=== PATIENT | female | born 1935 | race Caucasian/White ===

== ENCOUNTER 2017-10-28 13:17 | Emergency (ER) | payer MEDICARE, OTHER, SELFPAY ==
[2017-10-28 13:18] VITALS: BP 125/65; PULSE 80; RESP 16; TEMP 36.4; O2SAT 94; BMI 17.9
--- NOTE | 2017-10-28 13:33 | EKG12_ITS ---
Test Reason : DIZZINESS Blood Pressure : / mmHG Vent. Rate : 080 BPM Atrial Rate : 080 BPM P-R Int : 136 ms QRS Dur : 082 ms QT Int : 390 ms P-R-T Axes : 083 065 073 degrees QTc Int : 449 ms Normal sinus rhythm Normal ECG Confirmed by DOM DUEÑAS, LORNA ([id number]), metropolitan editor RAMIN BURNS ([id number]) on 10/31/2017 2:01:27 PM Referred By: ARIEL Confirmed By:LORNA FERNANDES MD
[2017-10-28 14:01] LABS: Absolute Lymphocyte Count 0.94 X10^3/ul (0.83-4.51); Absolute Neutrophil Count 6.7 X10^3/uL (2.0-7.7); Basophil# 0.02 X10^3/uL; Basophil% 0.2 % (0-1); Eosinophil# 0.06 X10^3/uL; Eosinophils% 0.7 % (0-5); Hematocrit 36.5 % (37-47); Hemoglobin 11.6 g/dl (12.0-15.0); Lymphocyte # 0.94 X10^3/ul (4.0); Lymphocyte % 11.2 % (19-41); Mean Corp Hgb Conc 31.8 g/gl (32-36); Mean Corpuscular Hgb 29.1 pg (27.0-32.0); Mean Corpuscular Volume 91.5 fL (81-99); Mean Platelet Vol. 10.1 fl (6.2-12.0); Monocyte# 0.64 X10^3/uL; Monocyte% 7.6 % (0-10); Neutrophil # 6.71 X10^3/uL (2.7-7.7); Neutrophil % 79.9 % (47-70); Platelet Count 180 K/mm3 (150-450); RBC Distribution Width CV 13.3 % (11.6-14.6); RBC Distribution Width SD 44.6 fl (35.1-43.9); Red Blood Count 3.99 M/mm3 (4.2-5.4); White Blood Count 8.4 K/mm3 (4.4-11.0)
[2017-10-28 14:02] LABS: POSITIVE COUNT NO; POSITIVE DIFFERENTIAL NO; POSITIVE MORPHOLOGY NO
[2017-10-28 14:18] LABS: Anion Gap 7 (5-15); BUN 23 mg/dL (7-18); BUN/Creat Ratio 30.7 RATIO (10-20); Calcium,Total 8.9 mg/dL (8.5-10.1); Chloride 102 mmol/L (98-107); Creatinine, Serum 0.75 mg/dL (0.55-1.02); EST Glomerular Filtration Rate 79 mL/min (>60); Est Glom Filt Rate - Afr Amer 95 mL/min (>60); Estimated Creatinine Clearance 34.06 ml/min; Glucose 139 mg/dL (74-106); Potassium 3.6 mmol/L (3.5-5.1); Sodium Level 138 mmol/L (136-145)
--- NOTE | 2017-10-28 14:23 | RAD_ITS ---
STUDY: X-RAY CHEST REASON FOR EXAM: Female, 82 years old. Dizziness. Near syncopal episode. TECHNIQUE: PA and lateral views of the chest. COMPARISON: Comparison is made with prior study dated February 14, 2017. FINDINGS: Hyperinflation. Mild residual increased markings in the lingular segment of the left upper lobe suggestive of scarring. This has improved as compared to prior study. Mild increased markings at the lung apices suggestive of scarring. There is no demonstrated pleural abnormality. Normal size heart. Normal mediastinum and suzanne. Normal visualized pulmonary arteries. Normal visualized aortic arch and descending thoracic aorta. There is demineralization of the osseous structures. Normal visualized ribs, clavicles, and shoulders. There is no demonstrated abnormality of the visualized soft tissue structures of the upper abdomen. RAD/Chest PA and Lateral IMPRESSION: Hyperinflation. Mild degree of increased markings at the left lung base suggestive of left basilar scarring. Electronically Signed: Osbaldo Garza MD at 14:51 EDT Tel [phone], Service support ,
--- NOTE | 2017-10-28 15:01 | ED.VISSUMM ---
- ER Visit Summary Date of Service: 10/28/17 Chief Complaint: Lightheaded History of Present Illness: The patient is a [address] Lior Todd III. 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 She did not pass out. She did not have any chest pain, palpitations, shortness of breath, nausea, or abdominal pain. On review of systems patient reports that she has had a cough for the past week and it is improving. Is productive yellow sputum without blood. She denies any fever, chills, or other complaints. Physical Examination: Vitals: Stable. Afebrile. General: Well-nourished and well-developed. Head: Normocephalic atraumatic. Neck: Supple, no lymphadenopathy. No JVD. Nontender. Cardiovascular: Regular rate and rhythm. No murmurs. Respiratory: No respiratory distress. Clear to auscultation bilaterally. Abdominal: Soft, nontender, nondistended, normal bowel sounds. No guarding, rebound, or peritoneal signs. Back: Nontender. Extremities: Nontender, no edema. Skin: Normal color, no rash. Neurologic: Alert and oriented ?3. Cranial nerves II through XII are intact. Normal strength and sensation. Psych: Normal affect. Test Results: EKG is sinus at 80 with no acute changes. Troponins negative. Chem-7 more for close of 139 and BUN of 23. Her BUN/creatinine ratio is 30.7 suggesting dehydration. CBC is marked for an H&H 11.6 and 36.5, segment was 80, monocytes of 11. Chest x-ray shows chronic changes. Emergency Department Course and Treatment: Patient was given a liter bolus of normal saline and her symptoms have completely resolved. Treatment Plan: Discussed the patient that her symptoms are likely due to dehydration exacerbated by the fact that she had been standing in one position for 3 hours. She is instructed to push fluids. Follow-up Dr. Lior Todd III in 1-2 days if not improving. Return Disposition: To home in improved and stable condition. Impression: 1. Near syncope. 2. Dehydration. 3. URI. This note was generated with [employer] software. It may contain incorrect words, spelling, and punctuation that were not noted in review of the chart prior to signing ED Disposition - Plan for ED Patient: Disposition: Home or Assisted Living Chief Complaint: Syncope Instructions: ED Dehydration Referrals: Lior Todd III, MD [Primary Care Provider] - 1-2 Days if not improving
[2017-10-28 16:21] VITALS: BP 118/53; PULSE 89; RESP 14; O2SAT 95
== END 2017-10-28 16:22 | disposition home or self-care (01) ==
PROVIDERS: Emergency Provider Emergency Medicine; Family Provider Family Medicine; PCP Family Medicine
DX: E86.0 Dehydration (principal); R55 Syncope and collapse; J06.9 Acute upper respiratory infection, unspecified; I10 Essential (primary) hypertension; Z79.82 Long term (current) use of aspirin; Z79.899 Other long term (current) drug therapy
CPT/HCPCS: 71046; 80048; 84484; 85025; 93005; 96360; 99285; J7030; J7040; A4216

== ENCOUNTER 2018-05-18 18:38 | Emergency (ER) | payer OTHER, MEDICARE, SELFPAY ==
[2018-05-18 18:40] VITALS: BP 145/79; PULSE 78; RESP 18; TEMP 36.6; O2SAT 98; BMI 16.9
--- NOTE | 2018-05-18 19:04 | RAD_ITS ---
STUDY: X-RAY - LEFT KNEE REASON FOR EXAM: Female, 83 years old. FALL, PAIN SWELLING AND DEFORMITY TO KNEE TECHNIQUE: 2 view(s) of the knee. COMPARISON: None. FINDINGS: Normal visualized distal femur. Normal visualized proximal tibia and fibula. Normal proximal tibiofibular articulation. Normal medial femorotibial compartment. Normal lateral femorotibial compartment. Normal patellofemoral articulation. There is a soft tissue prominence in the suprapatellar region suggesting a small volume joint effusion. Soft tissue swelling around the patella. Horizontal fracture through the mid patella. RAD/Knee 1 or 2 Views IMPRESSION: Soft tissue swelling around the patella. Horizontal fracture through the mid patella. Suprapatellar effusion. Electronically Signed: Kin Rehman MD at 19:22 EDT , Service support ,
--- NOTE | 2018-05-18 20:08 | ED.DCSUM_ITS ---
- ER Visit Summary Date of Service: 05/18/18 Chief Complaint: [Injury to left knee] History of Present Illness: The patient is a 83 F [presents to the emergency department complaint of injury to her left knee while at work today. Patient states that she tripped over a step while at work and fell directly onto her left knee. Patient unable to stand or bear weight afterwards. Patient denies any other injuries. Patient does have a history of hypertension. Patient is not on any blood thinners. She denies striking her head.] Physical Examination: [HEENT-PERRLA, EOMI. Cranial nerves II through XII grossly intact. TMs clear. Mucous membranes moist. No adenopathy. Cardiovascular-regular rate and rhythm without murmur or ectopy Lungs-clear to auscultation, chest wall stable without crepitus or subcu emphysema Abdomen-normoactive bowel sounds, soft, nontender, no rebound or rigidity, no peritoneal signs. Extremities-intact ?4, normal range of motion, normal pulses. Left knee-patient does have ecchymosis and soft tissue swelling over the anterior patella with tenderness palpation. Patient has limited range of motion flexion extension secondary to pain. Patient really cannot keep the leg extended at the knee off the bed. She is neurovascular intact distally. Test Results: [X-rays of the left knee obtained showed a horizontal fracture through the patella.] Emergency Department Course and Treatment: [Patient was placed in a knee immobilizer and given crutches. Patient will be advised to follow-up with orthopedics] Treatment Plan: [Follow-up with orthopedics and given a prescription for [place]ley for pain.] Disposition: [Discharged home in stable condition] Impression: [Mechanical fall Left patellar fracture] This note was generated with [employer] dictation software. It may contain incorrect words, spelling, and punctuation that were not noted in review of the chart prior to signing ED Disposition - Plan for ED Patient: Chief Complaint: Lower Extremity Injury Referrals: Lior Todd III, MD [Primary Care Provider] -
--- NOTE | 2018-05-18 20:08 | ED.DEP ---
ED Disposition - Plan for ED Patient: Chief Complaint: Lower Extremity Injury Instructions: ED Fx [place]ella Prescriptions: Hydrocodone Bitart/Apap 5-325 [[place] 5MG-325MG] 1 tab PO Q4H PRN PRN 2 Days #10 tab PRN Reason: Pain Referrals: Lior Todd III, MD [Primary Care Provider] - Trevor Reddy MD [STAFF PHYSICIAN] - 3-5 Days
[2018-05-18 20:55] VITALS: PULSE 81; RESP 17; O2SAT 98
== END 2018-05-18 21:02 | disposition home or self-care (01) ==
PROVIDERS: Emergency Provider Emergency Medicine; Family Provider Family Medicine; PCP Family Medicine
DX: S82.092A Other fracture of left patella, initial encounter for closed fracture (principal); W18.09XA Striking against other object with subsequent fall, initial encounter; Y93.9 Activity, unspecified; Y92.9 Unspecified place or not applicable; Y99.0 Civilian activity done for income or pay; I10 Essential (primary) hypertension; Z79.82 Long term (current) use of aspirin; Z79.899 Other long term (current) drug therapy
CPT/HCPCS: 73560; 99284

== ENCOUNTER → 2018-05-21 09:25 | Outpatient (CLI) | payer OTHER, SELFPAY ==
[2018-05-21 10:15] LABS: Hematocrit 39.4 % (37-47); Hemoglobin 12.8 g/dl (12.0-15.0); Mean Corp Hgb Conc 32.5 g/gl (32-36); Mean Corpuscular Hgb 29.6 pg (27.0-32.0); Mean Platelet Vol. 10.9 fl (6.2-12.0); Platelet Count 196 K/mm3 (150-450); RBC Distribution Width CV 13.2 % (11.6-14.6); RBC Distribution Width SD 43.3 fl (35.1-43.9); Red Blood Count 4.33 M/mm3 (4.2-5.4); White Blood Count 6.9 K/mm3 (4.4-11.0)
[2018-05-21 10:19] LABS: Scan Indicated on CBC? Y/N NO
[2018-05-21 10:37] LABS: Anion Gap 6 (5-15); BUN 21 mg/dL (7-18); BUN/Creat Ratio 26.2 RATIO (10-20); Calcium,Total 9.6 mg/dL (8.5-10.1); Chloride 103 mmol/L (98-107); EST Glomerular Filtration Rate 73 mL/min (>60); Est Glom Filt Rate - Afr Amer 88 mL/min (>60); Glucose 91 mg/dL (74-106); Potassium 4.1 mmol/L (3.5-5.1); Sodium Level 142 mmol/L (136-145)
== END ==
PROVIDERS: Family Provider Family Medicine; PCP Family Medicine; Referring Provider Physician Assistant; Visit Provider Physician Assistant
DX: Z01.818 Encounter for other preprocedural examination (principal)
CPT/HCPCS: 36415; 80048; 85027

== ENCOUNTER 2019-05-01 12:57 | Emergency (ER) | payer MEDICARE, OTHER, SELFPAY ==
[2019-05-01 12:58] VITALS: BP 155/72; PULSE 83; RESP 16; TEMP 36.2; O2SAT 99; BMI 16.8
--- NOTE | 2019-05-01 13:19 | RAD_ITS ---
STUDY: X-RAY CHEST REASON FOR EXAM: Female, 83 years old. Syncope TECHNIQUE: PA and lateral views of the chest. COMPARISON: October 28, 2017 chest x-ray FINDINGS: The lungs are hyperinflated. There is no demonstrated pleural abnormality. Normal size heart. Normal mediastinum and suzanne. Normal visualized pulmonary arteries. Normal visualized aortic arch and descending thoracic aorta. There are diffuse degenerative changes of the visualized thoracic spine. Normal visualized ribs, clavicles, and shoulders. There is no demonstrated abnormality of the visualized soft tissue structures of the upper abdomen. RAD/Chest PA and Lateral IMPRESSION: Nonspecific hyperinflation of the lungs no visualized focal infiltrate. Electronically Signed: Andreea Barclay MD at 14:53 EDT Tel , Service support ,
--- NOTE | 2019-05-01 13:19 | EKG12_ITS ---
Test Reason : SYNCOPE Blood Pressure : / mmHG Vent. Rate : 075 BPM Atrial Rate : 075 BPM P-R Int : 116 ms QRS Dur : 080 ms QT Int : 408 ms P-R-T Axes : 067 063 068 degrees QTc Int : 455 ms Normal sinus rhythm Normal ECG Confirmed by DOM DUEÑAS, LORNA ([id number]), publishing editor DIVINE ALCANTAR ([id number]) on 05/03/2019 9:02:03 AM Referred By: AP Confirmed By:LORNA FERNANDES MD
[2019-05-01 13:38] LABS: Absolute Neutrophil Count 4.7 X10^3/uL (2.0-7.7); Basophil# 0.03 X10^3/uL; Basophil% 0.5 % (0-1); Eosinophil# 0.06 X10^3/uL; Eosinophils% 0.9 % (0-5); Hematocrit 39.4 % (37-47); Hemoglobin 12.7 g/dL (12.0-15.0); Lymphocyte % 19.9 % (19-41); Mean Corp Hgb Conc 32.2 g/dL (32-36); Mean Corpuscular Hgb 29.7 pg (27.0-32.0); Mean Corpuscular Volume 92.1 fL (81-99); Mean Platelet Vol. 10.9 fl (6.2-12.0); Monocyte# 0.39 X10^3/uL; NRBC Flagged by Analyzer 0 % (0-5); Neutrophil # 4.72 X10^3/uL (2.7-7.7); Neutrophil % 72.4 % (47-70); Platelet Count 146 K/mm3 (150-450); RBC Distribution Width CV 12.8 % (11.6-14.6); RBC Distribution Width SD 43.8 fl (35.1-43.9); Red Blood Count 4.28 M/mm3 (4.2-5.4); White Blood Count 6.5 K/mm3 (4.4-11.0)
--- NOTE | 2019-05-01 13:48 | ED.VIS.GEN ---
History of Present Illness Informant: Patient, Significant Other Onset: Today Context: Sudden Onset Timing: Continuous Quality: syncope Current Severity: Mild Maximum Severity: Severe Worsened by: standing from sitting Relieved by: rest Associated Symptoms: nausea Narrative: 83 year old female Prior similar symptoms: Yes Recent Illness/Hospitalization: No <GuillaumeBrant sherman - Last Filed: 05/01/19 15:08> <Scout Askew - Last Filed: 05/01/19 21:55> Chief Complaint: Syncope Past Medical History Surgical History: cholecystectomy Smoking Status: Never smoker - Family History Maternal Family History: Reports: Unknown Paternal Family History: Reports: Unknown <GuillaumelaneBrant - Last Filed: 05/01/19 15:08> <Scout Askew - Last Filed: 05/01/19 21:55> - Allergies and Home Meds Allergies/Adverse Reactions: Allergies No Known Allergies Allergy (Verified 05/01/19 12:58) Primary Care Physician: Lior Todd III, MD [Primary Care Provider] - Physical Exam Vital Signs/Narrative: Vital Signs Temp Pulse Resp BP Pulse Ox 05/01/19 12:58 97.1 F L 83 16 155/72 H 99 <ZachBrant - Last Filed: 05/01/19 15:08> Diagnostic/Tx/Re-eval Chest X-Ray - ED: 2 View, Read by ED Physician, Read by Radiologist, No Acute Disease - Rhythm Strip Rhythm Strip: Sinus Rhythm Rate: 75 Ectopy: None - EKG Initial EKG Interpretation: Sinus Rhythm, No Acute Injury Pattern Prior: Unchanged - Medical Decision Making EKG was normal sinus rhythm rate of 75 bpm. No acute ischemic changes. Orthostatic vital signs were negative. Patient was given a 500 cc IV fluid bolus. Laboratory work-up is unremarkable, chest x-ray unremarkable. Repeat evaluation, the patient ambulates normally. She is not dizzy. Her vital signs are stable. She has been admitted for this in the past. At this time do not feel admission is indicated. She is agreeable with this plan. She will advise follow-up with her doctor on Friday which is in 48 hours. <ZachBrant - Last Filed: 05/01/19 15:08> - Medical Decision Making Patient was seen with me. I did a [id number] evaluation with the patient. Patient presents for syncopal episode that occurred today. Patient states she stood up from a seated position when she passed out. Patient denies any dizziness. Patient states she felt lightheaded and then passed out. Patient denies any palpitations. Patient denies any headaches. Patient denies any fevers or chills. Patient states she was only out for a few seconds and woke up immediately. Currently, patient denies any symptoms. Vital signs are stable. Patient is afebrile. Patient is in no acute distress. Cranial nerves II through XII are intact. Strength is 5/5 bilateral knee upper and lower extremities. There are no focal motor or sensory deficits noted. Heart was regular rate and rhythm. Lungs are clear and equal bilaterally. Abdomen is soft and nontender. Patient was admitted for syncopal episode approximately 1 year ago. Currently, the patient is asymptomatic and feels fine. Patient was to go home. Orthostatic vital signs were negative. Patient was able to ambulate without difficulty. Patient was instructed to follow-up with her primary care physician in 2 to 3 days for reevaluation. Patient and family understood and were agreeable with the plan. All questions were answered. <Scout Askew - Last Filed: 05/01/19 21:55> ED Disposition <Brant Serrano - Last Filed: 05/01/19 15:08> <Scout Askew - Last Filed: 05/01/19 21:55> - Plan for ED Patient: Disposition: Home or Assisted Living Diagnosis: Syncope Instructions: SYNCOPE, Unk Cause Referrals: Lior Todd III, MD [Primary Care Provider] -
[2019-05-01 13:59] LABS: Anion Gap 4 (5-15); BUN 18 mg/dL (7-18); BUN/Creat Ratio 19.1 RATIO (10-20); Calcium,Total 9.2 mg/dL (8.5-10.1); Chloride 102 mmol/L (98-107); Creatinine, Serum 0.94 mg/dL (0.55-1.02); EST Glomerular Filtration Rate 60 mL/min (>60); Est Glom Filt Rate - Afr Amer 73 mL/min (>60); Estimated Creatinine Clearance 33.43 ml/min; Glucose 123 mg/dL (74-106); Potassium 3.5 mmol/L (3.5-5.1); Sodium Level 138 mmol/L (136-145)
[2019-05-01 14:28] VITALS: BP 136/61; BP 147/73; BP 163/67; PULSE 73; PULSE 74; PULSE 79
[2019-05-01 15:07] VITALS: BP 144/81; PULSE 70; RESP 16; O2SAT 99
[2019-05-01 15:21] VITALS: BP 139/65; PULSE 73; RESP 16; O2SAT 98
== END 2019-05-01 15:30 | disposition home or self-care (01) ==
PROVIDERS: Emergency Provider Physician Assistant Medical; Family Provider Family Medicine; PCP Family Medicine
DX: R55 Syncope and collapse (principal)
CPT/HCPCS: 71046; 80048; 84484; 85025; 93005; 96360; 99285; J7040; A4216

== ENCOUNTER 2019-05-06 09:10 | Emergency (ER) | payer MEDICARE, OTHER, SELFPAY ==
[2019-05-06 09:11] VITALS: BP 196/80; PULSE 93; RESP 18; TEMP 36.6; O2SAT 98; BMI 17.1
--- NOTE | 2019-05-06 09:30 | ED.VISSUMM ---
- ER Visit Summary Date of Service: 05/06/19 Chief Complaint: High blood pressure History of Present Illness: The patient is a 83 F who presents for high blood pressure. She had home readings with a systolic blood pressure in the 150s and 180s today. Patient was seen previously in the ED 5 days ago for hypertension. She had an uneventful work-up and was advised to follow-up as an outpatient and she saw her doctor this week who did not change any of her medications. She thinks she is on losartan 100 mg daily and HCTZ 25 mg daily. She has been compliant with his treatment. Denies any symptoms or other changes. Physical Examination: Afebrile and vital signs unremarkable except for blood pressure 196/80. Patient in no acute distress. Alert and oriented. GCS 15. HEENT exam unremarkable. Neck is nontender with good range of motion. Heart regular. Lungs clear. Abdomen soft. Skin appears normal. Extremities nontender with no edema. Cranial nerves grossly intact. Normal strength and sensation. Test Results: None performed. I reviewed her work-up from 5 days ago. Emergency Department Course and Treatment: Patient was placed on a monitor. Will reevaluate her blood pressure. There is no indication to repeat any diagnostic testing. Will reassess her blood pressure, monitor for symptoms, and discuss with her primary care physician. Repeat blood pressure without intervention was 145/74. Patient will be discharged to follow-up with her PCP to recheck her blood pressures. She can also discuss her concerns about anxiety. Return for any new or worsening symptoms. Dr. Todd was paged. Treatment Plan: As above Disposition: Discharge Impression: 1. Established Hypertension This note was generated with [employer] dictation software. It may contain incorrect words, spelling, and punctuation that were not noted in review of the chart prior to signing ED Disposition - Plan for ED Patient: Referrals: Lior Todd III, MD [Primary Care Provider] -
[2019-05-06 10:06] VITALS: BP 145/74; PULSE 68; RESP 15; O2SAT 96
--- NOTE | 2019-05-06 10:17 | ED.DEP ---
ED Disposition - Plan for ED Patient: Instructions: HYPERTENSION, Established Referrals: Lior Todd III, MD [Primary Care Provider] -
[2019-05-06 10:26] VITALS: BP 154/74; PULSE 62; RESP 15; O2SAT 99
== END 2019-05-06 10:27 | disposition home or self-care (01) ==
PROVIDERS: Emergency Provider Emergency Medicine; Family Provider Family Medicine; PCP Family Medicine
DX: I10 Essential (primary) hypertension (principal); Z79.82 Long term (current) use of aspirin; Z79.899 Other long term (current) drug therapy
CPT/HCPCS: 99283

== ENCOUNTER 2020-08-31 09:43 | Outpatient (RCR) | payer MEDICARE, OTHER, SELFPAY | END 2020-08-31 23:59 | LOC: IMMUN 09:43 | PROVIDERS: PCP Family Medicine; Visit Provider Family Medicine | DX: Z23 Encounter for immunization (principal) | CPT/HCPCS: 0011A; 0012A; 91301 ==

== ENCOUNTER 2022-07-07 17:37 | Emergency (ER) | payer MEDICARE, OTHER, SELFPAY ==
[2022-07-07 17:39] VITALS: BP 134/66; PULSE 85; RESP 18; TEMP 37.3; O2SAT 96; BMI 20.3
--- NOTE | 2022-07-07 17:56 | EX.ED.VIS.UR ---
HPI HPI - URI History of Present Illness Chief Complaint: Cough Detail of Chief Complaint: Upper respiratory symptoms with documented temperature 102.0 ?F Informant: patient and family Onset/Context/Timing Onset: Yesterday Context: Sudden Onset Timing: Intermittent Quality: Cough that is nonproductive, nasal congestion and fever Location: Respiratory Current Severity: Mild Maximum Severity: Moderate Worsened by: Not Worsened By Swallowing, Eating Solids or Drinking Liquids Relieved by: Not Relieved By Tylenol or NSAIDs Associated Symptoms Associated Symptoms: Positive for Nasal Congestion, Myalgias and Nonproductive cough; Negative for Headache, Sinus Pressure, Nausea, Vomiting, Diarrhea, Shortness of Breath, Chest Pain, Hemoptysis or Productive Cough Narrative Narrative: Patient is an 87-year-old woman with history hypertension. Patient presents with upper respiratory symptoms started yesterday. Patient and her had positive COVID test today. She denies any other symptoms. She has been immunized. Prior similar symptoms: No Recent Illness/Hospitalization: No ROS ROS ED Constitutional Constitutional ED: Reports chills and fever(s); Denies subjective, sweats or weight loss Eyes Eyes: Denies blurry vision, change in vision or diplopia ENT ENT ED: Reports rhinorrhea; Denies ear pain or sore throat Cardiovascular Cardiovascular: Denies chest pain, orthopnea, palpitations, paroxysmal nocturnal dyspnea or racing heartbeat Respiratory/Chest Respiratory/Chest: Reports cough; Denies dyspnea, dyspnea on exertion, orthopnea, paroxysmal nocturnal dyspnea or sputum Gastrointestinal Gastrointestinal: Denies abdominal pain, diarrhea, nausea or vomiting Genitourinary Genitourinary ED: Denies dysuria, hematuria or urinary frequency Musculoskeletal Musculoskeletal: Denies arthralgias, back pain, myalgias or neck pain Integumentary Denies abscess, Abrasions or rash Neurologic Neurologic: Denies headache(s), paresthesias or weakness Endocrine Endocrinology: Denies cold intolerance or heat intolerance Hematologic/Lymphatic Hematologic/Lymphatic: Denies easy bleeding or easy bruising PFSH PFS Home Medications aspirin 81 mg tablet,delayed release 81 mg PO DAILY@2200 08/13/16 [History Last Taken 05/18/18] calcium carbonate 600 mg-vitamin D3 10 mcg (400 unit) tablet 2 tab PO DAILY 08/13/16 [History Last Taken 05/18/18] hydrochlorothiazide 12.5 mg capsule 1 tab PO DAILY 12/29/16 [History Last Taken 05/18/18] losartan 100 mg tablet 1 tab PO DAILY 12/29/16 [History Last Taken 05/18/18] nirmatrelvir 300 mg (150 mg x2)-ritonavir 100 mg tablet,dose pack(EUA) (Paxlovid) See Rx Instructions PO .COMPLEX #30 tabs 07/07/22 [Rx Last Taken Unknown] Allergy/AdvReac Type Severity Reaction Status Date / Time No Known Allergies Allergy Verified 07/07/22 17:38 Social History (Updated 07/07/22 @ 17:[address] Justyn Bajwa MD) household members: spouse Smoking Status: Never smoker substance use type: does not use EXAM Physical Exam Const Vital Signs: 07/07/22 17:39 Temperature 99.1 F Temperature Source Temporal Pulse Rate 85 Respiratory Rate 18 Blood Pressure 134/66 H Blood Pressure Mean 88 Pulse Ox 96 Oxygen Delivery Method Room Air Positive well nourished and well developed General Appearance ED: well developed and NAD; Negative for cyanotic, diaphoretic or pallor HEENT Reports moist mucous membranes HEENT Narrative: TM normal bilaterally. Ears normal. normocephalic and atraumatic Throat: posterior oropharynx normal Eyes PERRL and EOMs intact bilaterally General Eye ED: Negative for pale conjunctiva or scleral icterus Neck no lymphadenopathy, supple, no meningeal signs and no JVD Resp normal respiratory effort and clear to auscultation bilaterally Cardio S1 normal heart sound, S2 normal heart sound and no murmurs Rate: regular rate Rhythm: regular rhythm GI non-tender, non-distended and no masses Auscultation: normoactive bowel sounds Palpation: soft Extremity normal to inspection and full ROM General Extremety ED: Negative for cyanosis or tenderness General Extremity: Negative for cyanosis Neuro oriented x3, CN's II-XII intact bilaterally and no sensory deficits noted Sensorium / Orientation: alert Motor Exam: strength 5/5 throughout Psych mental status grossly normal Skin General Skin Exam: Negative for jaundice or pallor Lesions: no lesions Rashes: no rashes MDM MDM MDM Narrative Medical decision making narrative: Patient has upper story symptoms. Patient had a positive COVID test today. Her 's test was positive as well. Since her symptoms started 24 hours ago and she is 87 years of age with cardiovascular disease offered treatment with Paxlovid. Since patient has no contraindications we will order. Discharge Plan Triage Chief Complaint: Cough ED Provider: Provider,Ed Physician Dx/Rx/DC Orders Clinical Impression: COVID-19 virus infection, History of hypertension Instructions: Coronavirus Disease 2019 (COVID-19): Caring for Yourself or Others Prescriptions: New Paxlovid (EUA) 300 mg (150 mg x 2)-100 mg tablets,dose pack See Rx Instructions .ROUTE .COMPLEX Qty: 30 0RF Rx Instructions: take TWO 150 mg tablets of nirmatrelvir with ONE 100 mg tablet of ritonavir twice daily for 5 days No Action aspirin 81 MG tablet 81 mg PO DAILY@2200 Label Comments: [facility] calcium carbonate-vitamin D3 1 EACH tablet 2 tab PO DAILY Label Comments: SUPPLEMENT hydrochlorothiazide 12.5 MG capsule 1 tab PO DAILY Label Comments: losartan 100 MG tablet 1 tab PO DAILY Label Comments: Primary Care Provider: Care Physician,No Primary Referrals: Mel Plummer MD [Med Staff - Active Staff] - 1 Week if not improving Care Physician,No Primary [Primary Care Provider] - Disposition Disposition: Home, Self Care
[2022-07-07 18:16] VITALS: BP 134/66; PULSE 82; PULSE 85; RESP 16; RESP 18; TEMP 37.3; O2SAT 96
== END 2022-07-07 18:37 | disposition home or self-care (01) ==
PROVIDERS: Emergency Provider Emergency Medicine; Visit Provider Emergency Medicine
DX: U07.1 COVID-19 (principal); I10 Essential (primary) hypertension; Z79.82 Long term (current) use of aspirin; Z79.899 Other long term (current) drug therapy
CPT/HCPCS: 99282

== ENCOUNTER → 2023-02-10 | Outpatient (CLI) | payer MEDICARE, OTHER, SELFPAY ==
[2023-02-10 18:58] LABS: AST(SGOT) 27 U/L (15-37); Alanine Aminotransfer ALT/SGPT 19 U/L (13-56); Alkaline Phosphatase 72 U/L (45-117); Anion Gap 5 (5-15); BUN 20 mg/dL (7-18); BUN/Creat Ratio 25.9 RATIO (10-20); Calcium,Total 9.1 mg/dL (8.5-10.1); Chloride 105 mmol/L (98-107); Creatinine, Serum 0.77 mg/dL (0.55-1.02); EST Glomerular Filtration Rate 75 mL/min (>60); Est Glom Filt Rate - Afr Amer 91 mL/min (>60); Glucose 108 mg/dL (74-106); Potassium 3.7 mmol/L (3.5-5.1); Sodium Level 138 mmol/L (136-145)
== END | disposition home or self-care (01) ==
LOC: BFHLAB 15:45
PROVIDERS: PCP Family Medicine; Referring Provider Family Medicine; Visit Provider Family Medicine
DX: I10 Essential (primary) hypertension (principal)
CPT/HCPCS: 36415; 80053

== ENCOUNTER 2024-10-01 15:54 | Emergency (ER) | payer MEDICARE, OTHER, SELFPAY ==
[2024-10-01 15:55] VITALS: BP 123/93; PULSE 75; RESP 16; TEMP 36.6; O2SAT 98
--- NOTE | 2024-10-01 16:05 | RAD_ITS ---
PROCEDURE: ANKLE MIN 4 VIEWS REASON FOR EXAM: 89-year-old female, fall, pain in left ankle for several days. TECHNIQUE: 4 views of the left ankle COMPARISON: None FINDINGS: Diffuse osseous demineralization, which limits visualization. Acute, minimally displaced spiral fracture of the distal fibula at the level of the syndesmosis. No obvious distal tibial fracture. No significant widening of the tibiofibular joint. No suspicious bone lesion. Normal alignment. No effusion. Soft tissue swelling. RAD/Ankle min 3 Views IMPRESSION: Acute left distal fibula fracture at the level of the syndesmosis ([place] type B fracture). No significant widening of the tibiofibular joint. Reading Location: [id number]
--- NOTE | 2024-10-01 17:12 | EX.ED.GENINJ ---
HPI History of Present Illness Chief Complaint: Fall Detail of Chief Complaint: Injury due to fall, missed last step Informant: patient Onset/Context/Timing Onset: Hours Mechanism/Context: Blunt Injury Location of pain/injuries: Left lower leg and Left ankle Quality of Pain: Aching Location: Ankle Current Severity: Mild Maximum Severity: Moderate Worsened by: Weightbearing Relieved by: Elevation in Associated Symptoms Associated Symptoms: Positive for Loss of function (Difficulty bearing weight); Negative for Parasthesias, Weakness, Inability to ambulate, Loss of consciousness or Amnesia Narrative Narrative: Patient is an 89-year-old woman with history of hypertension and syncope who presents because she sustained injury to her left ankle. She missed stepped. She scraped his her leg against the edge of the step. She denies paresthesia, anesthesia medics. She denies head trauma. Denies neck pain. She denies back pain or buttock pain. Prior similar symptoms: No Recent Illness/Hospitalization: No PFSH PFS Medical History Hypertension Home Medications ?Medication ?Instructions ?Recorded ?Last Taken ?Type aspirin 81 mg tablet,delayed 81 mg PO DAILY@2200 08/13/16 05/18/18 History release calcium 600 mg (as 2 tab PO DAILY 08/13/16 05/18/18 History carbonate)-vitamin D3 10 mcg (400 unit) tablet hydrochlorothiazide 12.5 mg capsule 1 tab PO DAILY 12/29/16 05/18/18 History losartan 100 mg tablet 1 tab PO DAILY 12/29/16 05/18/18 History nirmatrelvir 300 mg (150 mg See Rx Instructions PO .COMPLEX 07/07/22 Unknown Rx x2)-ritonavir 100 mg tablet,dose #30 tabs pack (Paxlovid) Allergy/AdvReac Type Severity Reaction Status Date / Time No Known Allergies Allergy Verified 10/01/24 15:56 Social History household members: spouse Smoking Status: Never smoker substance use type: does not use ROS ROS ED Integumentary Reports other Details: Laceration anterior distal left leg Neurologic Neurologic: Denies paresthesias or weakness Hematologic/Lymphatic Hematologic/Lymphatic: Denies easy bleeding or easy bruising EXAM Physical Exam Const Vital Signs: 10/01/24 15:55 02/21/25 16:54 Temperature 97.8 F Temperature Source Oral Pulse Rate 75 Respiratory Rate 16 Respiratory Effort Normal Respiratory Depth Normal Respiratory Pattern Normal Blood Pressure 123/93 H Blood Pressure Mean 103 Pulse Ox 98 Oxygen Delivery Method Room Air Room Air Positive well nourished and well developed General Appearance ED: well developed and NAD HEENT atraumatic Eyes PERRL and EOMs intact bilaterally Resp normal respiratory effort Cardio regular rhythm Rate: regular rate Extremity full ROM; Negative for normal to inspection Extremity Narrative: There is a laceration anterior distal leg down to the subcutaneous tissue. There is no obvious foreign body noted. There is swelling with ecchymosis over the lateral malleolus. The pain ovation of the lateral malleolus. There is no pain ovation of the base of the fifth metatarsal. There is no laxity with drawer testing. PT pulses palpable. There is no pain to palpation over the fibular head or proximal tibia. There is no pain ovation over the medial malleolus or deltoid ligament. Neuro oriented x3 and CN's II-XII intact bilaterally Edgardo Coma Scale: document GCS findings Spontaneous Obeys Commands Oriented 15 Sensorium / Orientation: alert Psych mental status grossly normal and thought process normal Skin Skin Narrative: Laceration please see suture note PROC Procedures Other Procedures Procedure(s): Suture repair anterior distal left leg. Length of laceration 3.5 cm. The laceration was excised by local infiltration. 1% lidocaine total of 3 cc. The wound was irrigated with 250 cc of normal saline. The wound was closed using rosalina. A total of 7 rosalina placed. Patient tolerated the procedure. MDM MDM MDM Narrative Medical decision making narrative: X-ray was obtained per nurse protocol. Patient met criteria for x-ray based on the [place] ankle rule. She also has a laceration which will require repair. Radiography Chest X-Ray - ED: Read by ED Physician (Three-view x-ray of the ankle reveals a nondisplaced Fontana type B distal fibular fracture. There is no widening of the mortise. There is evidence of osteopenia. There is no widening of the mortise.) Diagnostic Testing: Clinical Impression(s) from Imaging Studies Ankle X-Ray 10/01/24 16:05 IMPRESSION: Acute left distal fibula fracture at the level of the syndesmosis (Fontana type B fracture). No significant widening of the tibiofibular joint. Reading Location: [facility] Management Discussion w/another healthcare provider: Flower Cheniller (Spoke with Dr. Dixon who is on-call for podiatry. Walking boot because of concern patient may fall if she uses crutches at the age of 89. Would like for her to call the office on Friday to be seen later that week.) Discharge Plan Triage Chief Complaint: Fall ED Provider: Justyn Bajwa Dx/Rx/DC Orders Clinical Impression: Closed fracture of distal end of left fibula, Laceration of left leg, Injury due to fall Instructions: ED Laceration, All Closures, ED Ankle Fracture, Distal Fibula Prescriptions: No Action aspirin 81 MG tablet 81 mg PO DAILY@2200 Patient Comments: [facility] calcium carbonate-vitamin D3 1 EACH tablet 2 tab PO DAILY Patient Comments: SUPPLEMENT hydrochlorothiazide 12.5 MG capsule 1 tab PO DAILY Patient Comments: losartan 100 MG tablet 1 tab PO DAILY Patient Comments: Paxlovid 300 mg (150 mg x 2)-100 mg tablets,dose pack See Rx Instructions .ROUTE .COMPLEX Qty: 30 0RF Rx Instructions: take TWO 150 mg tablets of nirmatrelvir with ONE 100 mg tablet of ritonavir twice daily for 5 days Primary Care Provider: Ga Casas Referrals: Sushil Dixon DPM [Med Staff - Active Staff] - As soon as possible Ga Casas, [Primary Care Provider] - Activity Restrictions/Additional Instructions: 1. Keep wound clean and dry for the next 48 to 72 hours. 2. Apply bacitracin ointment 2 times a day. 3. Call Dr. Houston's office on Friday to be seen later that week 4. Sutures/rosalina to be removed in 14 days. 5. Apply ice to your ankle 6-8 times a day. 6. While you are sitting you need to elevate your toes above your nose Print Language: Qatari Disposition Disposition: Home, Self Care
[2024-10-01] MEDS: Lidocaine 1% (20 ml mdv) 20 ML Vial INFILT (17:47)
== END 2024-10-01 18:38 | disposition home or self-care (01) ==
PROVIDERS: Emergency Provider Emergency Medicine; PCP Family Medicine; Visit Provider Emergency Medicine
DX: S82.402A Unspecified fracture of shaft of left fibula, initial encounter for closed fracture (principal); W10.9XXA Fall (on) (from) unspecified stairs and steps, initial encounter
CPT/HCPCS: 12002; 73610; 99284

== ENCOUNTER 2025-01-02 21:50 | Emergency (ER) | payer MEDICARE, OTHER, SELFPAY ==
[2025-01-02 21:51] VITALS: BP 151/66; PULSE 84; RESP 16; TEMP 36.8; O2SAT 95; BMI 20.4
--- NOTE | 2025-01-02 22:25 | EX.ED.DYSGE1 ---
HPI History of Present Illness Chief Complaint: Complaint Informant: patient and family Narrative Narrative: 89-year-old female presenting to the emergency room with a chief complaint of urinary frequency. Patient states her children made her come to the hospital. She notes that for the past several days she has been having urinary frequency. She denies any dysuria or hematuria. Family states that intermittently over the past weeks she has had some low back discomfort. Daughter reports violent pooping episodes that are messy and go everywhere. Patient states that she has not had these every day. She dismisses the low back discomfort is something that only happens every now and then. She denies any radicular symptoms. No fevers. No nausea vomiting. She states that she feels that she is eating normally but her family states that she eats like a bird. She denies any current pain. Family notes a strong smell to her urine. [facility] Medical History Dementia Hypertension Home Medications ?Medication ?Instructions ?Recorded ?Last Taken ?Type aspirin 81 mg tablet,delayed 81 mg PO DAILY@2200 08/13/16 05/18/18 History release calcium 600 mg (as 2 tab PO DAILY 08/13/16 05/18/18 History carbonate)-vitamin D3 10 mcg (400 unit) tablet hydrochlorothiazide 12.5 mg capsule 1 tab PO DAILY 12/29/16 05/18/18 History losartan 100 mg tablet 1 tab PO DAILY 12/29/16 05/18/18 History nirmatrelvir 300 mg (150 mg See Rx Instructions PO .COMPLEX 07/07/22 Unknown Rx x2)-ritonavir 100 mg tablet,dose #30 tabs pack (Paxlovid) cephalexin 500 mg capsule 500 mg PO Q12 #14 CAPSULES 01/02/25 Unknown Rx phenazopyridine 100 mg tablet 100 mg PO TID PRN pain 6 doses #6 01/02/25 Unknown Rx (Pyridium) tabs Allergy/AdvReac Type Severity Reaction Status Date / Time No Known Allergies Allergy Verified 01/02/25 21:55 Social History household members: spouse Smoking Status: Never smoker substance use type: does not use ROS ROS ED Constitutional Constitutional ED: Denies chills, fever(s) or weight loss Eyes Eyes: Denies change in vision or diplopia ENT ENT ED: Denies ear pain, rhinorrhea or sore throat Cardiovascular Cardiovascular: Denies chest pain, orthopnea, palpitations or racing heartbeat Respiratory/Chest Respiratory/Chest: Denies cough, dyspnea or orthopnea Gastrointestinal Gastrointestinal: Reports diarrhea; Denies abdominal pain, nausea or vomiting Genitourinary Genitourinary ED: Reports urinary frequency; Denies dysuria or hematuria Musculoskeletal Musculoskeletal: Reports back pain; Denies arthralgias or myalgias Integumentary Denies abscess or rash Neurologic Neurologic: Denies headache(s) or weakness Psychiatric Psychiatric: Denies anxiety, depression, suicidal ideation or suicidal thoughts Endocrine Endocrinology: Denies polydipsia, polyphagia or polyuria Allergic/Immunologic Allergic/Immunologic ED: Denies mouth swelling, tongue swelling or urticaria EXAM Physical Exam Const Vital Signs: 01/02/25 21:51 01/02/25 22:11 Temperature 98.3 F Temperature Source Oral Pulse Rate 84 Respiratory Rate 16 Respiratory Effort Normal Non-Labored Respiratory Pattern Normal Blood Pressure 151/66 H Blood Pressure Mean 94 Pulse Ox 95 Oxygen Delivery Method Room Air Positive well nourished and well developed General Appearance ED: well developed and NAD HEENT Reports normocephalic, head/scalp atraumatic and moist mucous membranes Eyes PERRL and EOMs intact bilaterally Neck no lymphadenopathy, supple and no JVD Resp normal respiratory effort and clear to auscultation bilaterally Cardio regular rate, regular rhythm and no murmurs GI normal to inspection, nondistended, normoactive bowel sounds and non-tender Palpation: soft Back/Spine no CVA tenderness and normal ROM Extremity normal to inspection General Extremety ED: Negative for edema General Extremity: Negative for edema Neuro oriented x3 and CN's II-XII intact bilaterally Sensorium / Orientation: alert Motor Exam: strength 5/5 throughout Psych mental status grossly normal Mood & Affect: Negative for depressed or tearful Skin no rashes or lesions noted and no wounds MDM MDM MDM Narrative Medical decision making narrative: Differential diagnosis includes but not limited to acute cystitis pyelonephritis hematuria kidney stone Based upon the patient's symptoms a urinalysis was performed which demonstrates greater than 100 white cells 3+ bacteria 5-10 red cells positive leukocyte esterase negative nitrates. A culture of the urine was ordered. I spoke with the patient and offered Pyridium which she would like to try to help reduce frequency. Going to place her on Keflex. There were no significant cultures of the urine previously at this hospital to help guide antibiotic therapy. History & Record Review Discussion w/independent historian: Patient and Family Additional record(s) reviewed:: Prior labs Lab Data Attestation: I reviewed the patient's lab results. Labs: Laboratory Results - last 24 hr 01/02/25 22:35 Urine Color Yellow Urine Clarity Turbid Urine pH 6.0 Ur Specific [place] 1.020 Urine Protein 500 H Urine Glucose (UA) Normal Urine Ketones 5 H Urine Occult Blood 150 H Urine Nitrite Negative Urine Bilirubin Negative Urine Urobilinogen Normal Ur Leukocyte Esterase 500 H Urine RBC 5-10 SEEN Urine WBC >100 SEEN Ur Squamous Epith Cells 0-5 SEEN Urine Bacteria 3+ Urine Mucus 0 SEEN Discharge Plan Triage Chief Complaint: Complaint Other Complaint: General Illness ED Provider: Francisco Reynolds Dx/Rx/DC Orders Clinical Impression: Acute cystitis Instructions: ED UTIs Women Prescriptions: New phenazopyridine [Pyridium] 100 mg tablet 100 mg PO TID PRN (Reason: pain) Qty: 6 0RF cephalexin 500 mg capsule 500 mg PO Q12 Qty: 14 0RF No Action aspirin 81 MG tablet 81 mg PO DAILY@2200 Patient Comments: [facility] calcium carbonate-vitamin D3 1 EACH tablet 2 tab PO DAILY Patient Comments: SUPPLEMENT hydrochlorothiazide 12.5 MG capsule 1 tab PO DAILY Patient Comments: losartan 100 MG tablet 1 tab PO DAILY Patient Comments: Paxlovid 300 mg (150 mg x 2)-100 mg tablets,dose pack See Rx Instructions .ROUTE .COMPLEX Qty: 30 0RF Rx Instructions: take TWO 150 mg tablets of nirmatrelvir with ONE 100 mg tablet of ritonavir twice daily for 5 days Primary Care Provider: Ga Casas Referrals: Ga Casas DO [Primary Care Provider] - 1 Week Activity Restrictions/Additional Instructions: The Pyridium will turn your urine orange color. This is a medicine designed to help with urinary tract infection symptoms. Keflex is your antibiotic which is twice a day for the next 7 days. As we discussed the lab will perform a urine culture. If you receive a phone call back from us it may be because we need to change the antibiotic based on the culture. I would asked that he follow-up with your primary care doctor within about 1 week. Print Language: Danish Disposition Disposition: Home, Self Care
[2025-01-02 22:42] LABS: Mucous, Urine 0 SEEN /hpf (<or=2+)
[2025-01-02 22:44] LABS: Color, Urine Yellow (Yellow); Glucose, Dipstick Normal (Normal); Ketone-Dipstick 5 mg/dl (Negative); Leukocyte Esterase-Dipstick 500 /ul (Negative); Nitrite-Dipstick Negative (Negative); Occult Blood-Urine 150 /ul (Negative); Protein-Dipstick 500 mg/dl (Negative); Urine Bilirubin Dipstick Negative (Negative); Urine Clarity Turbid (Clear); Urine Urobilinogen Normal (Normal)
[2025-01-02 22:51] LABS: Bacteria 3+ /hpf (None Seen); White Blood Cells >100 SEEN /hpf (0-5)
[2025-01-02 22:52] LABS: Red Blood Cells-Urine 5-10 SEEN /hpf (0-5); Squamous Epithelial Cells - UA 0-5 SEEN /hpf (5-10)
[2025-01-02 23:07] VITALS: BP 116/66; PULSE 97; RESP 18; TEMP 36.9; O2SAT 93
[2025-01-02] MEDS: Phenazopyridine 95 MG Tablet PO (23:09)
[2025-01-02] MEDS: Cephalexin 250 MG Capsule 500 MG PO (23:09)
--- NOTE | 2025-01-02 23:20 | ED.RN ---
Daughter - Lillian Ron - would like called with lab results [phone]
== END 2025-01-02 23:20 | disposition home or self-care (01) ==
PROVIDERS: Emergency Provider Emergency Medicine; PCP Family Medicine; Visit Provider Emergency Medicine
DX: N30.00 Acute cystitis without hematuria (principal); F03.90 Unspecified dementia, unspecified severity, without behavioral disturbance, psychotic disturbance, mood disturbance, and anxiety
CPT/HCPCS: 81001; 87077; 87086; 87088; 87186; 99284

== ENCOUNTER → 2025-01-12 | Outpatient (CLI) | payer MEDICARE, OTHER, SELFPAY ==
[2025-01-12 15:50] LABS: Absolute Lymphocyte Count 5.87 X10^3/uL (0.83-4.51); Absolute Neutrophil Count 4.3 X10^3/uL (2.0-7.7); Basophil% 0.9 % (0-1); Eosinophil# 0.22 X10^3/uL; Hematocrit 41.6 % (37-47); Hemoglobin 13.7 g/dL (12.0-15.0); Lymphocyte # 5.87 X10^3/ul (0.83-4.51); Lymphocyte % 52.7 % (19-41); Mean Corp Hgb Conc 32.9 g/dL (32-36); Mean Corpuscular Hgb 28.4 pg (27.0-32.0); Mean Corpuscular Volume 86.3 fL (81-99); Mean Platelet Vol. 10.7 fl (6.2-12.0); Monocyte# 0.59 X10^3/uL; Monocyte% 5.3 % (0-10); NRBC Flagged by Analyzer 0 % (0-5); Neutrophil # 4.31 X10^3/uL (2.7-7.7); Neutrophil % 38.7 % (47-70); POSITIVE DIFFERENTIAL YES; POSITIVE MORPHOLOGY YES; Platelet Count 270 K/mm3 (150-450); RBC Distribution Width CV 13.6 % (11.6-14.6); Red Blood Count 4.82 M/mm3 (4.2-5.4); White Blood Count 11.1 K/mm3 (4.4-11.0)
[2025-01-12 15:55] LABS: Color, Urine Yellow (Yellow); Glucose, Dipstick Normal (Normal); Ketone-Dipstick Negative (Negative); Leukocyte Esterase-Dipstick 25 /ul (Negative); Nitrite-Dipstick Negative (Negative); Occult Blood-Urine 250 /ul (Negative); Protein-Dipstick 30 mg/dl (Negative); Urine Bilirubin Dipstick Negative (Negative); Urine Clarity Sl. Cloudy (Clear); Urine Urobilinogen Normal (Normal)
[2025-01-12 16:03] LABS: Differential Indicated SCAN CRITERIA MET
[2025-01-12 16:09] LABS: ALB/GLOB Ratio 1.3 RATIO (0.9-2.4); AST(SGOT) 41 U/L (<=31); Alanine Aminotransfer ALT/SGPT 20 U/L (<=34); Albumin, Serum 4.5 g/dL (3.4-4.8); Alkaline Phosphatase 76 U/L (35-104); Anion Gap 15 (5-15); BUN 21 mg/dL (4-19); Calcium,Total 9.9 mg/dL (7.6-11.0); Carbon Dioxide 23.4 mmol/L (21.0-32.0); Chloride 100 mmol/L (98-108); Creatinine, Serum 0.88 mg/dL (0.70-1.20); EST Glomerular Filtration Rate 63 (>60); Globulin 3.4 g/dL (2.2-4.2); Glucose 95 mg/dL (70-99); Potassium 3.6 mmol/L (3.3-5.1); Protein, Total 7.9 g/dL (5.9-8.4); Sodium Level 138 mmol/L (133-145); Total Bilirubin 0.51 mg/dL (0.00-1.30)
[2025-01-12 21:56] LABS: Differential Comment SCANNED
[2025-01-12 21:57] LABS: Platelet Estimate ADEQUATE (ADEQ)
== END | disposition home or self-care (01) ==
PROVIDERS: PCP Family Medicine; Referring Provider Family Medicine; Visit Provider Family Medicine
DX: I10 Essential (primary) hypertension (principal); R35.0 Frequency of micturition
CPT/HCPCS: 36415; 80053; 81002; 85025; 87077; 87086; 87088